=== PATIENT | female | born 1960 ===

== ENCOUNTER → 2025-03-27 12:17 | Outpatient (REF) | payer MEDICARE, BC, SELFPAY | LOC: EMG 12:17 | PROVIDERS: FAMILY PHYSICIAN Nurse Practitioner Adult Health | DX: M79.601 Pain in right arm (principal); M79.602 Pain in left arm; R20.0 Anesthesia of skin; R20.9 Unspecified disturbances of skin sensation | CPT/HCPCS: 95886; 95911 ==